=== PATIENT | male | born 1990 | race Caucasian/White ===

== ENCOUNTER 2016-09-04 18:22 | Emergency (ER) | payer OTHER ==
[~2016-09-04] VITALS: Ht 180.3 cm; Wt 122.2 kg
[~2016-09-04 18:22] MED LIST: XANAX0.5 MG PO; ZANTAC150 MG PO
[2016-09-04 19:00] LABS: HEMATOCRIT 42.9 % (38.0-50.0); MCH 29.3 PG (29.0-34.0); MCHC 34.3 G/DL (30.0-36.0); MCV 85.6 FL (86-99); MEAN PLAT.VOLUME 8.6 uM^3 (9.0-12.4); PLATELET COUNT 297 K/uL (156-360); RBC DIS.WIDTH-CV 12.4 % (11.8-14.6); RBC DIS.WIDTH-SD 39.1 % (39-53); RED BLOOD COUNT 5.01 M/uL (4.00-5.50); WHITE BLOOD COUNT 13.3 K/uL (4.1-10.2)
[2016-09-04 19:10] LABS: CHLORIDE 109 mEq/L (99-109); POTASSIUM 3.8 mEq/L (3.7-5.4); SODIUM 142 mEq/L (136-147)
[2016-09-04 19:12] LABS: GLUCOSE 89 mg/dL (70-99)
[2016-09-04 19:13] LABS: ANION GAP 8 MEQ/L (2-14)
[2016-09-04 19:15] LABS: GFR ESTIMATE (CALCULATED) > 59 mL/min/
[2016-09-04 19:16] LABS: UREA NITROGEN (BUN) 17 mg/dL (9-23)
[2016-09-04 19:21] LABS: TROP-I INTERPRETATION NEGATIVE; TROPONIN-I < 0.01 ng/mL (0.0-0.30)
[2016-09-04 20:42] VITALS: BP 153/95
== END 2016-09-04 20:43 | disposition home or self-care (01) ==
LOC: EXP 18:22 → EME 18:22 → EXP 20:43
DX: R07.89 Other chest pain (principal); F41.9 Anxiety disorder, unspecified
CPT/HCPCS: 71020; 80048; 84484; 85027; 93005; 99281; 99284